=== PATIENT | male | born 2000 | race Caucasian/White ===

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

== ENCOUNTER 2022-04-30 03:37 | Emergency (ER) | payer BC, SELFPAY ==
[2022-04-30] MEDS ORDERED: Iopamidol 370 76% 100 ML VIAL FS ONE (03:38)
[2022-04-30 04:22] LABS: #Basophils 0.1 thou/uL (0.0-0.2); #Eosinphils 0.9 thou/uL (0.0-0.7); #Lymphocytes 2.1 thou/uL (1.20-3.40); #Monocytes 0.5 thou/uL (0.11-0.59); #Neutrophils 3.3 thou/uL (1.40-6.50); %Basophils 2.1 % (0.0-1.0); %Eosinophils 12.7 % (0.0-10.0); %Lymphocytes 30.4 % (28.0-48.0); %Neutrophils 47.8 % (31.0-61.0); Hemoglobin 14.6 g/dL (14.0-18.0); Mean Corpuscular HGB CONC 34.6 g/dL (32.0-36.0); Mean Corpuscular Hemoglobin 29.5 pg (25.0-35.0); Mean Corpuscular Volume 85.1 fL (78.0-98.0); Mean Platelet Volume 7.9 fL (7.4-10.4); Platelet Count 227 thou/uL (130-400); RBC Distribution Width 11.4 % (11.5-14.5); Red Blood Cell (RBC) Count 4.96 mill/uL (4.00-5.20); White Blood Cell (WBC) Count 6.9 thou/uL (4.8-10.8)
[2022-04-30] MEDS ORDERED: HYDROmorphone 0.5 MG/0.5 ML SYRINGE ONE (04:30)
[2022-04-30] MEDS ORDERED: Ondansetron PF 4 MG/2 ML Vial ONE (04:30)
[2022-04-30 04:40] LABS: ALT (SGPT) 14 U/L (8-55); AST (SGOT) 20 U/L (10-45); Albumin 4.5 g/dL (3.5-5.0); Alkaline Phosphatase 46 U/L (50-130); Anion Gap 16 mmol/L (10-20); BUN (Urea Nitrogen) 13 mg/dL (8.4-21.0); Bilirubin, Total 0.5 mg/dL (0.2-1.2); Calc. Creatinine Clearance 0 mL/min (70-130); Calcium 9.2 mg/dL (7.8-10.44); Carbon Dioxide 21 mmol/L (22-29); Chloride 108 mmol/L (98-107); Estimated GFR 123; Globulin 2.7 g/dL (2.4-3.5); Glucose 87 mg/dL (70-105); Lipase 24 U/L (8-78); Potassium 4.1 mmol/L (3.5-5.1); Protein, Total 7.2 g/dL (6.0-8.3); Sodium 141 mmol/L (136-145)
[2022-04-30] MEDS ORDERED: Ketorolac Tromethamine 30 MG/ML VIAL ONE (05:21)
[2022-04-30] MEDS ORDERED: Metoclopramide HCl 10 MG/2 ML VIAL ONE (06:14)
[2022-04-30 06:52] LABS: Bilirubin Negative (Negative); Blood, Urine Negative (Negative); Clarity Clear (Clear); Glucose, Urine (Dipstick) Negative (Negative); Ketone, Urine Trace mg/dL (Negative); Leukocyte Negative (Negative); Nitrite Negative (Negative); Protein, Urine (Dipstick) Negative (Neg-Trace); Urobilinogen 0.2 mg/dL (Less than 2)
== END 2022-04-30 07:46 | disposition home or self-care (01) ==
LOC: BURERS 03:37
DX: R11.2 Nausea with vomiting, unspecified (principal); R10.9 Unspecified abdominal pain; J45.909 Unspecified asthma, uncomplicated
CPT/HCPCS: 74177; 80053; 81003; 83690; 85025; 96361; 96374; 96375; J1170; J1885; J2405; J2765; Q9967

== ENCOUNTER 2023-10-09 23:29 | Emergency (ER) | payer BC ==
[2023-10-09] MEDS ORDERED: Dicyclomine 20 MG/2 ML VIAL ONE (23:55)
[2023-10-09] MEDS ORDERED: Ketorolac Tromethamine 30 MG (1 mL) VIAL ONE (23:55)
[2023-10-09 23:56] LABS: #Basophils 0.1 thou/uL (0.0-0.2); #Eosinphils 0.3 thou/uL (0.0-0.7); #Lymphocytes 1.5 thou/uL (1.20-3.40); #Monocytes 0.4 thou/uL (0.11-0.59); #Neutrophils 10.1 thou/uL (1.40-6.50); %Basophils 0.6 % (0.0-1.0); %Eosinophils 2.7 % (0.0-10.0); %Lymphocytes 11.7 % (28.0-48.0); %Monocytes 3.6 % (0.0-4.0); %Neutrophils 81.5 % (31.0-61.0); Hematocrit 44.6 % (42.0-52.0); Hemoglobin 15.8 g/dL (14.0-18.0); Mean Corpuscular HGB CONC 35.3 g/dL (32.0-36.0); Mean Corpuscular Hemoglobin 29.2 pg (25.0-35.0); Mean Corpuscular Volume 82.8 fl (78.0-98.0); Mean Platelet Volume 7.5 fL (7.4-10.4); Platelet Count 255 10x3/uL (130-400); RBC Distribution Width 10.6 % (11.5-14.5); Red Blood Cell (RBC) Count 5.39 mill/uL (4.00-5.20); White Blood Cell (WBC) Count 12.4 10x3/uL (4.8-10.8)
[2023-10-09] MEDS ORDERED: Ondansetron PF 4 MG/2 ML Vial ONE (23:56)
[2023-10-10 00:22] LABS: ALT (SGPT) 18 U/L (8-55); AST (SGOT) 17 U/L (5-34); Albumin 4.8 g/dL (3.5-5.0); Alkaline Phosphatase 44 U/L (50-130); Anion Gap 15 mmol/L (10-20); BUN (Urea Nitrogen) 16 mg/dL (8.9-20.6); Bilirubin, Total 0.5 mg/dL (0.2-1.2); Calc. Creatinine Clearance 0 mL/min (70-130); Calcium 9.2 mg/dL (7.8-10.44); Carbon Dioxide 21 mmol/L (22-29); Chloride 107 mmol/L (98-107); Estimated GFR 116; Globulin 2.7 g/dL (2.4-3.5); Glucose 93 mg/dL (70-105); Lipase 24 U/L (8-78); Potassium 3.5 mmol/L (3.5-5.1); Protein, Total 7.5 g/dL (6.0-8.3); Sodium 139 mmol/L (136-145)
== END 2023-10-10 00:56 | disposition home or self-care (01) ==
LOC: BURERS 23:29
DX: A08.4 Viral intestinal infection, unspecified (principal)
CPT/HCPCS: 80053; 83690; 85025; 96361; 96374; 96375; J1885; J2405